=== PATIENT | female | born 1995 | race Two or more races ===

== ENCOUNTER 2019-10-24 16:06 | Inpatient (IN) | payer MEDICAID, OTHER ==
[~2019-10-24] VITALS: Ht 165.1 cm; Wt 108.7 kg
[2019-10-24] MEDS ORDERED: ASPirin 81 mg TAB PO ONE (17:15)
[2019-10-24 18:04] LABS: Urine Bacteria NONE SEEN /hpf (None Seen); Urine Blood Negative /uL (Negative); Urine Specific Gravity 1.015 (1.001-1.035); Urine WBC 28 /hpf (0 - 5)
[2019-10-24 18:24] LABS: Amphetamine Screen, Urine NEGATIVE (NEGATIVE); Barbiturate Scree,Urine NEGATIVE (NEGATIVE); Benzodiazephine Screen, Urine NEGATIVE (NEGATIVE); Cannabinoid Screen, Urine NEGATIVE (NEGATIVE); Cocaine Screen, Urine NEGATIVE (NEGATIVE); Opiate Scree,Urine NEGATIVE (NEGATIVE); Phencyclidine Screen, Urine NEGATIVE (NEGATIVE)
[2019-10-24 18:31] LABS: Basophils # (auto) 0 10 ^3/uL (0-0.2); Basophils % (auto) 0.3 % (0.0-2.0); Eosinophils # (auto) 0.1 10 ^3/uL (0-0.8); Eosinophils % (auto) 1.2 % (0.0-7.0); Hematocrit 41.3 % (36.0-46.0); Hemoglobin 14.1 g/dL (12.2-16.2); Lymphocytes # (auto) 2.3 10 ^3/uL (0.4-5.4); Mean Corpuscular Hemoglobin 28.4 pg (28.0-32.0); Mean Corpuscular Hgb Conc. 34.2 g/dL (32.0-36.0); Monocytes # (auto) 0.5 10 ^3/uL (0-1.3); Monocytes % (auto) 5.8 % (0.0-12.0); Neutrophils # (auto) 5.9 10 ^3/uL (1.6-8.6); Neutrophils % (auto) 66.7 % (37.0-80.0); Nucleated Red Blood Cells % 0.1 %; Platelet Count (auto) 269 10^3/uL (140-450); Red Blood Cells 4.98 10^6/uL (4.0-5.20); White Blood Cell 8.9 10^3/uL (4.4-10.8)
[2019-10-24 18:47] LABS: Alanine Aminotransferase 76 U/L (13-56); Albumin 3.4 g/dL (3.4-5.0); Anion Gap 3 (5-15); Aspartate Aminotransferase 46 U/L (15-37); Blood Urea Nitrogen 18 mg/dL (7-18); Calcium 8.1 mg/dL (8.5-10.1); Carbon Dioxide 28 mmol/L (21-32); Chloride 109 mmol/L (98-107); GFR African American 89 mL/min; GFR Non-African American 74 mL/min; Glucose 94 mg/dL (74-106); Potassium 3.5 mmol/L (3.5-5.1); Sodium 140 mmol/L (136-145)
[2019-10-24 18:52] LABS: Alkaline Phosphatase 54 U/L (45-117); Bilirubin, Total 0.8 mg/dL (0.2-1.0); Total Protein 7.5 g/dL (6.4-8.2)
[2019-10-24] MEDS ORDERED: dilTIAZem 25 MG/5 ML VIAL IV ONE (19:00)
[2019-10-24] MEDS ORDERED: cefTRIAXone 1GM/50ML D5W 50 ML IV ONE (19:00)
[2019-10-24] MEDS ORDERED: ACETAMINOPHEN 500 MG TAB PO PRN (19:15)
[2019-10-24] MEDS ORDERED: LACTULOSE 20Gm/30ML SOLN PO PRN (19:15)
[2019-10-24] MEDS ORDERED: METOPROLOL TARTRATE 25 MG TAB PO SCH (22:00)
--- NOTE | 2019-10-24 22:00 | NUR ---
Telemetry admit from ER Dilma POLANCO admitted to Telemetry unit after SBAR received. Patient oriented to Odilia Durant RN primary RN, unit, room, bed, and unit policies regarding patient care and visiting hours. Patient now on continuous telemetry monitoring, tele box # [id number] and telemetry reading on arrival to unit is Afib. Patient weighed by bedscale and encouraged to call if they need something. Instructed on POC. All questions and concerns addressed, patient verbalized understanding, will continue to monitor Note: []
[2019-10-24] MEDS: SODIUM CHLORIDE 0.9% 1,000 ML IV SCH (23:19)
[2019-10-24] MEDS: FAMOTIDINE 20 MG TAB PO SCH (23:19)
[2019-10-24] MEDS: ENOXAPARIN SOD 100 MG/1 ML SYRINGE SC SCH (23:20)
[2019-10-24 23:30] VITALS: BP 122/71
[2019-10-24 23:47] VITALS: BP 122/77
[2019-10-25] VITALS (7 sets, daily range): BP systolic 105–135; BP diastolic 67–79
[2019-10-25] MEDS: METOPROLOL TARTRATE 25 MG TAB PO SCH ×3 (01:06→22:16)
[2019-10-25] MEDS: NITROGLYCERIN 0.4 MG SL TAB SL PRN ×2 (02:30→02:35)
--- NOTE | 2019-10-25 02:30 | NUR ---
0230 - Patient complained of SOB and chest pain 01/31. Chest pain protocol initiated. 1st NTG tab SL given. EKG done. V/S taken BP 130/90, HR 103, O2 Sat 100% at 2 Lpm/NC, will continue to monitor 0235 - patient still complained of chest pain 12/01, 2nd NTG given, will continue to monitor 0245 - Patient stated chest pain partially relieved at 06/03. Maintained on O2. Instructed to call as needed, will continue to monitor
--- NOTE | 2019-10-25 04:05 | NUR ---
Paged hospitalist, awaiting call back
--- NOTE | 2019-10-25 04:30 | NUR ---
Received call from [employer] that patient had 5 beats of Vtach. Checked on patient, per patient no chest pain at this time, V/S taken, BP 112/79, HR 123, 96% on 2 Lpm/NC. Hospitalist was paged earlier, still waiting for call back, will continue to monitor
[2019-10-25] MEDS: SODIUM CHLORIDE 0.9% 1,000 ML IV SCH ×2 (05:07→15:07)
--- NOTE | 2019-10-25 05:17 | NUR ---
Hospitalist Luis called back, no new order received at this time, will continue to monitor
[2019-10-25] MEDS ORDERED: IBUP800T24 PO (05:46)
--- NOTE | 2019-10-25 10:20 | NUR ---
Patient c/o Chest Pain Patient c/o severe cp, per DIRECT SERVICE WORKER patient is crying. VS: BP 99/46, HR 60, RR20, Spo2 96%. Elevated feet up. O2 at 2L. reassessment 10 minutes BP, 103/56. EKG completed. Pain medication given per MD orders. Will continue to monitor.
[2019-10-25] MEDS: MORPHINE SULF INJ 2 MG/ML SYRINGE 1ML IV PRN (10:30)
--- NOTE | 2019-10-25 10:38 | NUR ---
EKG EKG read by dr. Basurto, no new orders.
[2019-10-25] MEDS: ASPirin 81 mg TAB PO SCH (11:09)
[2019-10-25] MEDS: cefTRIAXone 1GM/50ML D5W 50 ML IV SCH (11:09)
[2019-10-25] MEDS: FAMOTIDINE 20 MG TAB PO SCH ×2 (11:10→22:15)
[2019-10-25] MEDS ORDERED: DIGOXIN (250MCG/ML) 2 ML AMPULE IV ONE (11:45)
[2019-10-25] MEDS: ENOXAPARIN SOD 100 MG/1 ML SYRINGE SC SCH ×2 (12:39→22:15)
[2019-10-25] MEDS: FUROSEMIDE 20 MG/2 ML VIAL IV SCH ×2 (12:40→18:00)
--- NOTE | 2019-10-25 17:27 | NUR ---
Rounds Patient is comfortably resting in bed. No s/s distress /sob noted/stated. No c/o pain. Will continue to monitor.
--- NOTE | 2019-10-25 19:20 | NUR ---
CLOSING NOTE Patient comfortably resting, no s/s of distress, no c/o pain. Call light at bedside and bed at lowest locked position. Care endorsed to Liliana RODRIGUEZ.
--- NOTE | 2019-10-25 19:30 | NUR ---
Opening Shift Note Assumed care of patient, awake and alert. No S/S of distress/SOB or pain. Instructed on POC and to call for assist PRN, will continue to monitor for changes Q1hr and PRN.
[2019-10-26] VITALS (7 sets, daily range): BP systolic 100–120; BP diastolic 64–77
[2019-10-26] MEDS: SODIUM CHLORIDE 0.9% 1,000 ML IV SCH ×2 (01:07→09:53)
[2019-10-26 05:55] LABS: Basophils # (auto) 0 10 ^3/uL (0-0.2); Basophils % (auto) 0.5 % (0.0-2.0); Eosinophils # (auto) 0.1 10 ^3/uL (0-0.8); Eosinophils % (auto) 1.8 % (0.0-7.0); Hematocrit 41.3 % (36.0-46.0); Hemoglobin 13.9 g/dL (12.2-16.2); Lymphocytes # (auto) 2.1 10 ^3/uL (0.4-5.4); Lymphocytes % (auto) 29.4 % (10.0-50.0); Mean Corpuscular Hgb Conc. 33.7 g/dL (32.0-36.0); Monocytes # (auto) 0.5 10 ^3/uL (0-1.3); Monocytes % (auto) 6.9 % (0.0-12.0); Neutrophils # (auto) 4.3 10 ^3/uL (1.6-8.6); Neutrophils % (auto) 61.4 % (37.0-80.0); Nucleated Red Blood Cells % 0.2 %; Platelet Count (auto) 262 10^3/uL (140-450); Red Blood Cells 4.97 10^6/uL (4.0-5.20); Red Cell Distribution Width 12.9 % (11.8-14.3)
[2019-10-26 06:14] LABS: Potassium 3.4 mmol/L (3.5-5.1)
[2019-10-26 06:23] LABS: BUN/Creatinine Ratio 16.8; Calcium 8.3 mg/dL (8.5-10.1)
[2019-10-26] MEDS: FUROSEMIDE 20 MG/2 ML VIAL IV SCH ×2 (06:23→18:14)
--- NOTE | 2019-10-26 09:45 | NUR ---
DR. MARCIAL AT BEDSIDE TO DISCUSS PLAN OF CARE WITH PATIENT .
[2019-10-26] MEDS: cefTRIAXone 1GM/50ML D5W 50 ML IV SCH (09:51)
[2019-10-26] MEDS: METOPROLOL TARTRATE 25 MG TAB PO SCH ×2 (09:52→22:00)
[2019-10-26] MEDS: FAMOTIDINE 20 MG TAB PO SCH ×2 (09:52→23:11)
[2019-10-26] MEDS: ASPirin 81 mg TAB PO SCH (09:52)
[2019-10-26] MEDS: ENOXAPARIN SOD 100 MG/1 ML SYRINGE SC SCH ×2 (09:52→23:12)
[2019-10-26] MEDS: traMADol HCL 50 MG TAB PO PRN ×2 (09:53→23:11)
[2019-10-26] MEDS ORDERED: POTASSIUM EFFERVESENT TAB 25 MEQ PO ONE (10:00)
--- NOTE | 2019-10-26 10:00 | NUR ---
IV INSERTION INSERTED 20 G TO THE RIGHT AC, WITH ONE ATTEMPT, PATIENT TOLERATED WELL. REMOVED 20 G TO THE LEFT AC.
[2019-10-27 05:00] VITALS: BP 121/69
[2019-10-27] MEDS: FUROSEMIDE 20 MG/2 ML VIAL IV SCH ×2 (06:23→18:00)
[2019-10-27 06:31] LABS: Basophils # (auto) 0 10 ^3/uL (0-0.2); Basophils % (auto) 0.4 % (0.0-2.0); Eosinophils # (auto) 0.1 10 ^3/uL (0-0.8); Eosinophils % (auto) 2.4 % (0.0-7.0); Hemoglobin 14.7 g/dL (12.2-16.2); Lymphocytes # (auto) 2.4 10 ^3/uL (0.4-5.4); Lymphocytes % (auto) 42.6 % (10.0-50.0); Mean Corpuscular Hemoglobin 27.8 pg (28.0-32.0); Mean Corpuscular Hgb Conc. 33.5 g/dL (32.0-36.0); Mean Corpuscular Volume 82.8 fL (80.0-100.0); Monocytes # (auto) 0.5 10 ^3/uL (0-1.3); Monocytes % (auto) 8.2 % (0.0-12.0); Neutrophils # (auto) 2.6 10 ^3/uL (1.6-8.6); Neutrophils % (auto) 46.4 % (37.0-80.0); Nucleated Red Blood Cells % 0.4 %; Platelet Count (auto) 271 10^3/uL (140-450); Red Blood Cells 5.31 10^6/uL (4.0-5.20); Red Cell Distribution Width 13.4 % (11.8-14.3); White Blood Cell 5.6 10^3/uL (4.4-10.8)
[2019-10-27 06:50] LABS: Calcium 8.4 mg/dL (8.5-10.1); Potassium 3.5 mmol/L (3.5-5.1)
[2019-10-27 06:52] LABS: BUN/Creatinine Ratio 23.3
--- NOTE | 2019-10-27 07:01 | NUR ---
SIDE EFFECTS OF LASIX DISCUSSED WITH PATIENT;PT RESTING COMFORTABLY;DENIES PAIN OR DISCOMFORT;TWO SIDERAILS UP WITH CALL LIGHT IN REACH.
[2019-10-27 09:00] VITALS: BP 117/57
[2019-10-27] MEDS: cefTRIAXone 1GM/50ML D5W 50 ML IV SCH (09:26)
[2019-10-27] MEDS: METOPROLOL TARTRATE 25 MG TAB PO SCH ×2 (09:27→22:00)
[2019-10-27] MEDS: ASPirin 81 mg TAB PO SCH (09:27)
[2019-10-27] MEDS: SPIRONOLACTONE 25 MG TAB PO SCH (09:27)
[2019-10-27] MEDS: LISINOPRIL 5 MG TAB PO SCH (09:28)
[2019-10-27] MEDS: FAMOTIDINE 20 MG TAB PO SCH ×2 (09:28→23:14)
[2019-10-27] MEDS: ENOXAPARIN SOD 100 MG/1 ML SYRINGE SC SCH (09:29)
[2019-10-27] MEDS: MORPHINE SULF INJ 2 MG/ML SYRINGE 1ML IV PRN (09:29)
--- NOTE | 2019-10-27 12:04 | NUR ---
Spoke with pharmacist regarding patients urine culture she stated to keep patient on Rocephin until sensitivity comes back tomorrow. Notified Dr. Basurto. Dr. Kaufman at patients bedside to discuss plan of care
[2019-10-27] MEDS: APIXABAN 5 MG TAB PO SCH ×2 (12:52→23:14)
[2019-10-27 14:00] VITALS: BP 100/60
[2019-10-27 17:15] VITALS: BP 96/70
[2019-10-28 05:00] VITALS: BP 106/68
[2019-10-28] MEDS: FUROSEMIDE 20 MG/2 ML VIAL IV SCH ×2 (06:06→17:27)
[2019-10-28 06:58] LABS: Basophils # (auto) 0 10 ^3/uL (0-0.2); Basophils % (auto) 0.3 % (0.0-2.0); Eosinophils # (auto) 0.1 10 ^3/uL (0-0.8); Eosinophils % (auto) 2.4 % (0.0-7.0); Hemoglobin 15.5 g/dL (12.2-16.2); Lymphocytes % (auto) 35.2 % (10.0-50.0); Mean Corpuscular Hemoglobin 27.8 pg (28.0-32.0); Mean Corpuscular Hgb Conc. 33.7 g/dL (32.0-36.0); Mean Corpuscular Volume 82.6 fL (80.0-100.0); Monocytes # (auto) 0.4 10 ^3/uL (0-1.3); Monocytes % (auto) 7.9 % (0.0-12.0); Neutrophils # (auto) 3.1 10 ^3/uL (1.6-8.6); Neutrophils % (auto) 54.2 % (37.0-80.0); Nucleated Red Blood Cells % 0.2 %; Platelet Count (auto) 275 10^3/uL (140-450); Red Blood Cells 5.57 10^6/uL (4.0-5.20); Red Cell Distribution Width 13.2 % (11.8-14.3); White Blood Cell 5.6 10^3/uL (4.4-10.8)
[2019-10-28 07:10] LABS: BUN/Creatinine Ratio 25.3; Calcium 8.8 mg/dL (8.5-10.1); Magnesium 2.3 mg/dL (1.6-2.6); Potassium 3.7 mmol/L (3.5-5.1)
--- NOTE | 2019-10-28 07:30 | NUR ---
Opening Shift Note Assumed care of patient, awake and alert. No S/S of distress/SOB or pain. Bed in lowest and locked position with side rails upx2 and call light in reach. Instructed on POC and to call for assist PRN, will continue to monitor for changes Q1hr and PRN.
[2019-10-28 09:00] VITALS: BP 126/69
[2019-10-28] MEDS: cefTRIAXone 1GM/50ML D5W 50 ML IV SCH (09:07)
[2019-10-28] MEDS: ASPirin 81 mg TAB PO SCH (09:08)
[2019-10-28] MEDS: SPIRONOLACTONE 25 MG TAB PO SCH (09:08)
[2019-10-28] MEDS: APIXABAN 5 MG TAB PO SCH ×2 (09:09→21:42)
[2019-10-28] MEDS: METOPROLOL TARTRATE 25 MG TAB PO SCH ×2 (09:09→21:43)
[2019-10-28] MEDS: FAMOTIDINE 20 MG TAB PO SCH ×2 (09:10→21:42)
[2019-10-28] MEDS: LISINOPRIL 5 MG TAB PO SCH (09:11)
[2019-10-28 13:00] VITALS: BP 111/56
[2019-10-28 13:55] LABS: Hepatitis A Ab IgM Negative; Hepatitis B Core IgM Negative
[2019-10-28 13:56] LABS: Hepatitis B Surface Antigen Negative (Negative); Hepatitis C Antibody Negative (Negative)
--- NOTE | 2019-10-28 14:39 | NUR ---
Est energy needs 3722-7538 kcal (14-18 kcal/kg BW 109kg) Est protein needs 57-74g (1-1.3g/kg IBW 57kg) Will reassess prn. Addendum: 10/28/19 at [address] Amended: Links added.
--- NOTE | 2019-10-28 15:16 | NUR ---
1500 10/28/19 - Faxed to [facility] Rajendra Restrepo at [phone] face sheet, H/P, consults, ECHO and progress notes.
--- NOTE | 2019-10-28 15:57 | NUR ---
SPOKE TO LINA WITH THE [employer]. ACCORDING TO LINA THERE IS PAPERWORK THAT NEEDS TO BE SIGNED. PER LINA, SHE WILL FAX THE PAPERWORK OVER. RN PROVIDED LINA WITH THE FAX NUMBER TO THE [facility]. RN SPOKE TO DR. SOLORIO AND NOTIFIED DR. SOLORIO ON THE PAPERWORK THAT NEEDS A DOCTOR SIGNATURE. PER DR. SOLORIO, HE WILL SIGN THE PAPERWORK TOMORROW 10/29/2019. RN UPDATED LINA ON THE CONVERSATION WITH DR. SOLORIO. LINA VERBALIZED UNDERSTANDING. STILL AWAITING FAX. Addendum: 10/28/19 at 1605 by JACKLYN HUNTER RN RN PHONE NUMBER FOR LINA WITH [employer] IS [phone].
[2019-10-28 16:57] VITALS: BP 89/49
--- NOTE | 2019-10-28 19:00 | NUR ---
Opening Shift Note: Assumed care of patient, awake and alert. No S/S of distress/SOB or pain. Bed in lowest locked position, side rails up x 2, call light within reach. Patient instructed on POC and to call for assist PRN, will continue to monitor for changes Q1hr and PRN.
[2019-10-28 22:00] VITALS: BP 143/88
--- NOTE | 2019-10-29 02:46 | NUR ---
Closing note: Patient asleep in bed. No S/S of distress at this time. Care endorsed.
--- NOTE | 2019-10-29 02:50 | NUR ---
ASSUMED PATIENT CARE. REPORT RECEIVED. PATIENT RESTING IN BED, NO DISTRESS NOTED. WILL CONTINUE TO MONITOR.
[2019-10-29 04:57] VITALS: BP 127/81
[2019-10-29] MEDS: FUROSEMIDE 20 MG/2 ML VIAL IV SCH ×2 (05:59→18:00)
[2019-10-29 06:44] LABS: Basophils # (auto) 0 10 ^3/uL (0-0.2); Basophils % (auto) 0.7 % (0.0-2.0); Eosinophils # (auto) 0.1 10 ^3/uL (0-0.8); Eosinophils % (auto) 2.2 % (0.0-7.0); Hematocrit 49.8 % (36.0-46.0); Hemoglobin 16.5 g/dL (12.2-16.2); Lymphocytes # (auto) 2.1 10 ^3/uL (0.4-5.4); Lymphocytes % (auto) 32.9 % (10.0-50.0); Mean Corpuscular Hemoglobin 27.6 pg (28.0-32.0); Mean Corpuscular Hgb Conc. 33.3 g/dL (32.0-36.0); Mean Corpuscular Volume 83.1 fL (80.0-100.0); Monocytes # (auto) 0.5 10 ^3/uL (0-1.3); Neutrophils # (auto) 3.5 10 ^3/uL (1.6-8.6); Neutrophils % (auto) 56.2 % (37.0-80.0); Platelet Count (auto) 329 10^3/uL (140-450); Red Blood Cells 5.99 10^6/uL (4.0-5.20); Red Cell Distribution Width 13.3 % (11.8-14.3); White Blood Cell 6.3 10^3/uL (4.4-10.8)
[2019-10-29 07:27] LABS: BUN/Creatinine Ratio 22.1; Calcium 9.7 mg/dL (8.5-10.1)
--- NOTE | 2019-10-29 08:15 | NUR ---
OPENING SHIFT NOTE: PATIENT AWAKE SITTING IN CHAIR AT BEDSIDE, A/OX4, RESPIRATIONS EVEN AND UNLABORED. PATIENT DENIES ANY PAIN AT THIS TIME. THIS RN PERFORMED FULL LINEN CHANGE AND GAVE SUPPLIES FOR BATHING. UPDATED ON PLAN OF CARE, PATIENT VERY PLEASANT ESTABLISHED RAPPORT, MORE EDUCATION GIVEN ON [facility] LIFE VEST, PATIENT VERBALIZED UNDERSTANDING, CONCERNS ADDRESSED. CALL LIGHT WITHIN REACH, WILL CONTINUE TO MONITOR.
[2019-10-29 08:57] VITALS: BP 125/57
--- NOTE | 2019-10-29 10:50 | NUR ---
BAD CLOTH CHECKER ELOISA AT BEDSIDE.
[2019-10-29] MEDS: ASPirin 81 mg TAB PO SCH (10:54)
[2019-10-29] MEDS: cefTRIAXone 1GM/50ML D5W 50 ML IV SCH (10:54)
[2019-10-29] MEDS: APIXABAN 5 MG TAB PO SCH ×2 (10:54→22:02)
[2019-10-29] MEDS: SPIRONOLACTONE 25 MG TAB PO SCH (10:55)
[2019-10-29] MEDS: FAMOTIDINE 20 MG TAB PO SCH ×2 (10:55→22:02)
[2019-10-29] MEDS: LISINOPRIL 5 MG TAB PO SCH (10:55)
[2019-10-29] MEDS: METOPROLOL TARTRATE 25 MG TAB PO SCH ×2 (10:56→22:02)
--- NOTE | 2019-10-29 11:13 | NUR ---
CALL MADE TO LINA REGARDING UNRECEIVED PAPERWORK. PENDING MD SIGNATURE. VOICEMAIL LEFT REGARDING THIS ISSUE.
--- NOTE | 2019-10-29 12:58 | NUR ---
FAX RECIEVED FROM LINA AT [facility]. THIS RN TO RE-SEND WITH SIGNATURES. FAX NUMBER TO LINA DIRECT [phone]
[2019-10-29 13:00] VITALS: BP 118/62
--- NOTE | 2019-10-29 14:55 | NUR ---
[facility] ASSISTANCE PROGRAM PAPER GIVEN TO PATIENT, EDUCATION GIVEN, AND THIS RN TO SEND BACK TO [facility] ONCE COMPLETE.
--- NOTE | 2019-10-29 16:29 | NUR ---
assessment Patient is a 23 year old female who is alert and oriented. Patients cognitive abilities are intact. Prior to admission patient lived home with family and functioned independently. Patient informed me she is able to care for her own ADLs. Per patient she will return home to her prior living arrangements post discharge and family will transport her home. Patient has no insurance. Patient has been assessed by Florentino Moss of [facility]. Patient is over income. Patient may qualify for Medi-chris since she will be disabled. Florentino has gotten a letter sign by the doctor and is now working on Medi-chris. Patient has a consult for [employer]. A technical sales representatives will contact patient regarding program for no insurance patients. I have provided patient with resources for [facility], Dr. Gomez, and [facility] urgent care for follow up visits. I have provided patient with a prescription card from community assistance program.I informed patient she has a right to speak to a addiction social worker regarding all care. I informed patient she has a right to participate in any and all discharge planning. Patient does not have a POA and advanced directive. I have offered patient information on POA and advanced directives. I informed the patient the advantages and benefits of having an Advanced Directive. Patient verbalized understanding and agreed to discharge plan. Addendum: 10/29/19 at 1637 by Olimpia SARABIA Amended: Links added.
[2019-10-29 16:57] VITALS: BP 107/53
--- NOTE | 2019-10-29 18:35 | NUR ---
PAPERWORK FAXED TO [facility]: ECHO REPORT, ASSISTANCE PROGRAM, AND VEST ORDER SENT TO [facility] REP LINA. ONCE PENDING ACCEPTANCE NUMBER IS GIVEN OR [facility] PENDING AUTHORIZATION NUMBER LINA IS REQUESTING # FOR FURTHER ZOL APPROVALS.
--- NOTE | 2019-10-29 18:51 | NUR ---
CARE ENDORSED TO LISA RODRIGUEZ.
--- NOTE | 2019-10-29 19:40 | NUR ---
RECEIVED PATIENT FROM DAY SHIFT RN. PATIENT RESTING IN BED. NO S/S OF DISTRESS NOTED. DENIED PAIN FOR NOW. POC INSTRUCTED AND ENCOURAGED PATIENT TO CALL FOR RESOURCING CONSULTANT IF NEEDED. BED IN LOWEST POSITION WITH SIDE RAILS UP X 2. CALL MOSQUERA WITHIN REACH. CONTINUE TO MONITOR FOR CHANGES Q1H AND PRN.
[2019-10-29 22:00] VITALS: BP 105/70
--- NOTE | 2019-10-29 23:31 | NUR ---
PATIENT RESTING IN BED AND WATCHING MOVIE, NO S/S OF DISTRESS NOTED. DENIED PAIN AND ANY CHEST DISCOMFORT. CONTINUE TO MONITOR.
--- NOTE | 2019-10-30 03:27 | NUR ---
PATIENT SLEEPING. NO S/S OF DISTRESS NOTED. CONTINUE CARE.
[2019-10-30 04:57] VITALS: BP 114/64
[2019-10-30] MEDS: FUROSEMIDE 20 MG/2 ML VIAL IV SCH (06:13)
--- NOTE | 2019-10-30 07:20 | NUR ---
OPENING SHIFT NOTE ASSUMED CARE OF PATIENT FROM MOTORBOAT MECHANIC HELPER RN CHRISTINE. PATIENT IS AWAKE, ALERT AND ORIENTED X4. PATIENT HAS NO S/S OF DISTRESS/SOB OR PAIN. INSTRUCTED PATIENT ON POC, PATIENT VERBALIZED UNDERSTANDING. BED IS IN LOWEST POSITION WITH SIDE RAILS RAISED X2, BED WHEELS LOCKED, AND CALL LIGHT IS WITHIN REACH.
[2019-10-30 07:37] VITALS: BP 109/61
[2019-10-30 08:20] LABS: Basophils # (auto) 0 10 ^3/uL (0-0.2); Eosinophils # (auto) 0.2 10 ^3/uL (0-0.8); Hemoglobin 16.7 g/dL (12.2-16.2); Red Cell Distribution Width 13.1 % (11.8-14.3)
[2019-10-30 08:21] LABS: Basophils % (auto) 0.7 % (0.0-2.0); Eosinophils % (auto) 2.4 % (0.0-7.0); Hematocrit 49.6 % (36.0-46.0); Lymphocytes # (auto) 2.5 10 ^3/uL (0.4-5.4); Lymphocytes % (auto) 37.5 % (10.0-50.0); Mean Corpuscular Hemoglobin 27.8 pg (28.0-32.0); Mean Corpuscular Hgb Conc. 33.7 g/dL (32.0-36.0); Mean Corpuscular Volume 82.4 fL (80.0-100.0); Monocytes # (auto) 0.6 10 ^3/uL (0-1.3); Monocytes % (auto) 9.2 % (0.0-12.0); Neutrophils # (auto) 3.4 10 ^3/uL (1.6-8.6); Neutrophils % (auto) 50.2 % (37.0-80.0); Nucleated Red Blood Cells % 0.3 %; Platelet Count (auto) 332 10^3/uL (140-450); Red Blood Cells 6.02 10^6/uL (4.0-5.20); White Blood Cell 6.7 10^3/uL (4.4-10.8)
--- NOTE | 2019-10-30 08:30 | NUR ---
PER PATIENT SHE IS ON THE PHONE WITH [facility] VEST QUALITY CONTROL TESTER
[2019-10-30 08:37] LABS: Calcium 9.3 mg/dL (8.5-10.1); Potassium 3.6 mmol/L (3.5-5.1)
[2019-10-30 08:40] LABS: BUN/Creatinine Ratio 27.9
--- NOTE | 2019-10-30 08:44 | NUR ---
SPOKE WITH FLAVOR MAKER BABATUNDE. PER BABATUNDE, ZOLL VEST WILL SPEAK WITH PATIENT REGARDING ZOLL VEST.
[2019-10-30 08:57] VITALS: BP 109/69
[2019-10-30] MEDS: ASPirin 81 mg TAB PO SCH (09:15)
[2019-10-30] MEDS: METOPROLOL TARTRATE 25 MG TAB PO SCH ×2 (09:15→21:43)
[2019-10-30] MEDS: FAMOTIDINE 20 MG TAB PO SCH ×2 (09:15→21:41)
[2019-10-30] MEDS: APIXABAN 5 MG TAB PO SCH ×2 (09:16→21:42)
[2019-10-30] MEDS: SPIRONOLACTONE 25 MG TAB PO SCH (09:17)
[2019-10-30] MEDS: cefTRIAXone 1GM/50ML D5W 50 ML IV SCH (09:18)
[2019-10-30] MEDS: LISINOPRIL 5 MG TAB PO SCH (09:18)
[2019-10-30 13:00] VITALS: BP 101/66
--- NOTE | 2019-10-30 15:05 | NUR ---
SPOKE WITH NISSA FROM [facility] AND SHE WILL BE HERE AT 1800 TO FIT PATIENT FOR VEST
--- NOTE | 2019-10-30 15:30 | NUR ---
SPOKE WITH DR. LLANOS. INFORMED MD [facility] WILL BE HERE AT 1800 TO FIT PATIENT FOR VEST. PER MD, SHE WILL DISCHARGE PATIENT IN THE MORNING.
[2019-10-30 16:57] VITALS: BP 96/66
--- NOTE | 2019-10-30 18:45 | NUR ---
ZOLL VEST STEELER AT BEDSIDE. FITTING PATIENT FOR ZOLL VEST
--- NOTE | 2019-10-30 19:14 | NUR ---
CLOSING SHIFT NOTE ENDORSED CARE TO SUSTAINABILITY PROJECT COORDINATOR RN ESHA. PATIENT HAS NO S/S OF DISTRESS/SOB OR PAIN AT THIS TIME.
--- NOTE | 2019-10-30 19:30 | NUR ---
Opening Shift Note Assumed care of patient, awake and alert using the restroom. No S/S of distress/SOB or pain. patient has no telebox monitor applied. Informed patient to call when done to apply telemonitor. patient verbalized understanding.
--- NOTE | 2019-10-30 19:50 | NUR ---
Assumed care of patient, awake and alert. telemonitor reapplied 110 bpm denies sob distress or pain. patient has life vest on. Instructed on POC and to call for assist PRN, will continue to monitor for changes Q1hr and PRN. bed in low position and call light within reach
[2019-10-30 22:00] VITALS: BP 98/56
[2019-10-31 05:35] VITALS: BP 123/58
[2019-10-31 07:10] LABS: Basophils # (auto) 0 10 ^3/uL (0-0.2); Basophils % (auto) 0.5 % (0.0-2.0); Eosinophils # (auto) 0.2 10 ^3/uL (0-0.8); Eosinophils % (auto) 2.1 % (0.0-7.0); Hematocrit 46.7 % (36.0-46.0); Hemoglobin 15.4 g/dL (12.2-16.2); Lymphocytes # (auto) 2.9 10 ^3/uL (0.4-5.4); Lymphocytes % (auto) 40.1 % (10.0-50.0); Mean Corpuscular Hemoglobin 27.5 pg (28.0-32.0); Mean Corpuscular Volume 83.2 fL (80.0-100.0); Monocytes # (auto) 0.8 10 ^3/uL (0-1.3); Monocytes % (auto) 11.1 % (0.0-12.0); Neutrophils # (auto) 3.3 10 ^3/uL (1.6-8.6); Neutrophils % (auto) 46.2 % (37.0-80.0); Nucleated Red Blood Cells % 0.1 %; Platelet Count (auto) 316 10^3/uL (140-450); Red Blood Cells 5.61 10^6/uL (4.0-5.20); White Blood Cell 7.2 10^3/uL (4.4-10.8)
--- NOTE | 2019-10-31 07:15 | NUR ---
OPENING NOTE Assumed care of patient at 0700. Patient is exhibiting no signs of respiratory distress at this time. Patient is showing no signs of pain at this time. Updated patient on POC. Bed locked in lowest position, side rails up x 2, HOB elevated at least 30 degrees and call light is within reach. Will continue to monitor.
--- NOTE | 2019-10-31 07:16 | NUR ---
report given to dayshift rn patient denies sob distress or pain
[2019-10-31 07:33] LABS: Calcium 8.9 mg/dL (8.5-10.1)
[2019-10-31 07:37] LABS: BUN/Creatinine Ratio 27.2
[2019-10-31] MEDS ORDERED: ATOR40TA52 PO (08:24)
[2019-10-31] MEDS ORDERED: MET25T PO (08:24)
[2019-10-31] MEDS ORDERED: APIX5TAB PO (08:24)
[2019-10-31] MEDS ORDERED: LISI2.5T47 PO (08:24)
[2019-10-31] MEDS ORDERED: ASPI81CH43 PO (08:26)
[2019-10-31] MEDS ORDERED: FURO20TA3 PO (08:26)
[2019-10-31 08:44] VITALS: BP 134/77
[2019-10-31] MEDS: APIXABAN 5 MG TAB PO SCH (10:20)
[2019-10-31] MEDS: FAMOTIDINE 20 MG TAB PO SCH (10:20)
[2019-10-31] MEDS: ASPirin 81 mg TAB PO SCH (10:20)
[2019-10-31] MEDS: METOPROLOL TARTRATE 25 MG TAB PO SCH (10:21)
[2019-10-31 10:26] VITALS: BP 134/79
--- NOTE | 2019-10-31 11:53 | NUR ---
Discharge instructions given as ordered. Encourage to follow up with PMD as instructed. All questions and concerns addressed. Patient verbalized understanding. Medication reconciliation form completed and copy given to patient. IV removed by MICHAEL Garcia with catheter intact, pressure dressing applied. Telemetry unit returned to ICU. Patient ambulated to vehicle all personal belongings, accompanied by staff. No distress noted at time of departure.
== END 2019-10-31 11:53 | disposition home or self-care (01) | DRG 291 ==
LOC: EDSEX 16:06 → ER 16:06 → TELE 16:07 → TELE-WESTW 22:28
PROVIDERS: ADMIT Internal Medicine; ATTEND Internal Medicine Nephrology
DX: I50.43 Acute on chronic combined systolic (congestive) and diastolic (congestive) heart failure (principal); N17.0 Acute kidney failure with tubular necrosis; E87.1 Hypo-osmolality and hyponatremia; D68.69 Other thrombophilia; I48.19 Other persistent atrial fibrillation; I48.92 Unspecified atrial flutter; N39.0 Urinary tract infection, site not specified; E66.9 Obesity, unspecified; M54.9 Dorsalgia, unspecified; R07.89 Other chest pain; E87.6 Hypokalemia; F12.90 Cannabis use, unspecified, uncomplicated; G89.29 Other chronic pain; I07.1 Rheumatic tricuspid insufficiency; Z82.0 Family history of epilepsy and other diseases of the nervous system; Z82.3 Family history of stroke; Z82.49 Family history of ischemic heart disease and other diseases of the circulatory system; Z83.3 Family history of diabetes mellitus; Z68.39 Body mass index [BMI] 39.0-39.9, adult
CPT/HCPCS: 36415; 71046; 71275; 76705; 76775; 80048; 80053; 80074; 80307; 81001; 81025; 82550; 83735; 83880; 84443; 84484; 85025; 85379; 87086; 93005; 93306; 93970; 96374; G0378; J0696

== ENCOUNTER 2020-02-09 20:49 | Inpatient (IN) | payer MEDICAID ==
[~2020-02-09] VITALS: Ht 165.1 cm; Wt 114.7 kg
[~2020-02-09 20:49] MED LIST: APIX5TAB PO; ASPI81CH43 PO; MET25T PO
[2020-02-09] MEDS ORDERED: dilTIAZem HCL 60 MG TAB PO ONE (21:15)
[2020-02-09] MEDS ORDERED: dilTIAZem 25 MG/5 ML VIAL IV ONE (21:15)
[2020-02-09 21:24] LABS: Basophils # (auto) 0 10 ^3/uL (0-0.2); Basophils % (auto) 0.6 % (0.0-2.0); Eosinophils # (auto) 0.1 10 ^3/uL (0-0.8); Eosinophils % (auto) 1.7 % (0.0-7.0); Hematocrit 40.7 % (36.0-46.0); Hemoglobin 13.5 g/dL (12.2-16.2); Lymphocytes # (auto) 2.2 10 ^3/uL (0.4-5.4); Lymphocytes % (auto) 28.6 % (10.0-50.0); Mean Corpuscular Hemoglobin 27.6 pg (28.0-32.0); Mean Corpuscular Hgb Conc. 33.1 g/dL (32.0-36.0); Mean Corpuscular Volume 83.3 fL (80.0-100.0); Monocytes # (auto) 0.5 10 ^3/uL (0-1.3); Monocytes % (auto) 6.6 % (0.0-12.0); Neutrophils # (auto) 4.8 10 ^3/uL (1.6-8.6); Neutrophils % (auto) 62.5 % (37.0-80.0); Nucleated Red Blood Cells % 0.1 %; Platelet Count (auto) 341 10^3/uL (140-450); Red Blood Cells 4.88 10^6/uL (4.0-5.20); Red Cell Distribution Width 13.8 % (11.8-14.3); White Blood Cell 7.7 10^3/uL (4.4-10.8)
[2020-02-09 21:34] LABS: Albumin 2.8 g/dL (3.4-5.0); Calcium 7.8 mg/dL (8.5-10.1); Potassium 3.6 mmol/L (3.5-5.1)
[2020-02-09 21:36] LABS: INR 1.55 (0.9-1.15); Partial Thromboplastin Time 26.5 sec (23.0-31.2)
[2020-02-09 21:39] LABS: Bilirubin, Total 1.3 mg/dL (0.2-1.0); Total Protein 6.2 g/dL (6.4-8.2)
[2020-02-09] MEDS ORDERED: SODIUM CHLORIDE 0.9% 500 ML IV ONE (22:00)
[2020-02-09 22:18] LABS: Urine Bacteria MOD /hpf (None Seen); Urine Blood 3+ /uL (Negative); Urine Specific Gravity 1.018 (1.001-1.035); Urine WBC 95 /hpf (0 - 5)
[2020-02-09 22:32] LABS: Alcohol, Urine < 3.0 mg/dL (0-10); Amphetamine Screen, Urine NEGATIVE (NEGATIVE); Barbiturate Scree,Urine NEGATIVE (NEGATIVE); Benzodiazephine Screen, Urine NEGATIVE (NEGATIVE); Cannabinoid Screen, Urine NEGATIVE (NEGATIVE); Cocaine Screen, Urine NEGATIVE (NEGATIVE); Opiate Scree,Urine NEGATIVE (NEGATIVE); Phencyclidine Screen, Urine NEGATIVE (NEGATIVE)
[2020-02-09] MEDS ORDERED: cefTRIAXone 1GM/50ML D5W 50 ML IV ONE (23:15)
[2020-02-10] MEDS ORDERED: TEMAZEPAM 15 MG CAP PO PRN (00:30)
[2020-02-10] MEDS ORDERED: ONDANSETRON HCL 4 MG/2 ML VIAL IV PRN (00:30)
[2020-02-10] MEDS ORDERED: NITROGLYCERIN 0.4 MG SL TAB SL PRN (00:30)
[2020-02-10] MEDS ORDERED: ACETAMINOPHEN 325 MG TAB PO PRN (00:30)
[2020-02-10] MEDS ORDERED: FUROSEMIDE 20 MG/2 ML VIAL IV ONE (00:30)
[2020-02-10] MEDS ORDERED: AMIODARONE HCL 150 MG in D5W 5% 100 ML IV ONE (01:00)
[2020-02-10] MEDS ORDERED: AMIODARONE 450mg/250ml AE 250 ML IV SCH ×2 (01:15→07:15)
[2020-02-10] MEDS ORDERED: AMIODARONE HCL (50 MG/ ML) 3 ML VIAL IV ONE (01:42)
[2020-02-10] MEDS ORDERED: PROMETHAZINE HCL 25 MG/ML 1ML IM ONE (03:00)
[2020-02-10] MEDS: cefTRIAXone 1GM/50ML D5W 50 ML IV SCH (09:24)
[2020-02-10] MEDS: FUROSEMIDE 20 MG/2 ML VIAL IV SCH ×2 (10:00→12:30)
[2020-02-10] MEDS: METOPROLOL TARTRATE 25 MG TAB PO SCH ×2 (10:00→18:16)
[2020-02-10] MEDS ORDERED: ASPirin 81 mg TAB PO SCH (10:00)
[2020-02-10] MEDS: FAMOTIDINE 20 MG TAB PO SCH ×2 (10:08→20:07)
[2020-02-10] MEDS: APIXABAN 5 MG TAB PO SCH ×2 (10:12→20:07)
[2020-02-10 11:10] VITALS: BP 105/69
--- NOTE | 2020-02-10 11:10 | NUR ---
RECEIVED report from Nasreen RODRIGUEZ Patient from ER after arrival by car d/t SOB and chest pain for 1 week. Patient states she has been compliant with her prescribed cardiac medications. Patient is calm,AO x 4, follows commands, moves all extremities. On NC 2L, no SOB ambulating from gurney to bed and then to chair. Patient on Amiodioarone IV 0.5mg , bag #2, patient transitioned to PO meds for rate control. Patient reports 0/10 pain, no chest pain, no dizziness. Patient states symptoms for past week, SOB, Dizzness, transient chest pain, neuralgia lower extremities. Will continue to monitor.
[2020-02-10 11:45] VITALS: BP 109/76
--- NOTE | 2020-02-10 11:53 | NUR ---
Dr. Kaufman bedside Updated on status. RN discussed with physician treatment plan if Afib is unstable. Will patient teach throughout the day with the patient. Medication compliance important as patient only had 60 days worth of medication. Additionally a referral to craft coordinator to follow her. Physician orders; Lasix 20 mg IV now. Increase Lisinopril doseage.
--- NOTE | 2020-02-10 12:28 | NUR ---
RN D/C Amiodarone drip per Dr. Kaufman. Per Dr. Kaufman do not hold Lasix 20mg IV at this time, administer with BP 107 systolic at the time he was bedside. RN will encourage oral fluids since patient had not taken any oral fluids since time of admission.
[2020-02-10 12:30] VITALS: BP 102/75
--- NOTE | 2020-02-10 12:31 | NUR ---
Patient back in bed, asleep. Patient ate 15% of lunch meal. NC 2L while sleeping. Patient teaching regarding notifying RN of change in symptoms or chest pain.
[2020-02-10 12:45] VITALS: BP 94/70
--- NOTE | 2020-02-10 12:45 | NUR ---
Patient up to bedside commode.
--- NOTE | 2020-02-10 13:15 | NUR ---
RN bedside to help patient up to commode.
--- NOTE | 2020-02-10 15:00 | NUR ---
RN bedside. Personal belongings completed.
[2020-02-10] MEDS ORDERED: LISI-275 PO (15:21)
[2020-02-10] MEDS ORDERED: FURO20TA3 PO (15:22)
[2020-02-10] MEDS ORDERED: ATOR40TA52 PO (15:24)
[2020-02-10 15:45] VITALS: BP 103/79
--- NOTE | 2020-02-10 15:48 | NUR ---
Patient sleeping in bed.
--- NOTE | 2020-02-10 16:42 | NUR ---
ss consult Per consult no pcp. Olimpia Garcia to see patient for PCP today. Addendum: 02/10/20 at 1643 by Olimpia SARABIA Amended: Links added.
--- NOTE | 2020-02-10 17:29 | NUR ---
RN bedside . Patient sleeping in bed. In no signs of distress.
--- NOTE | 2020-02-10 17:30 | NUR ---
RN paged Dr. Kaufman. Patient off of amiodarone IV drip per his verbal order. He stated he would put patient on Amiodarone PO, but there is no order. Patients HR is trending up. Physicians progress note did state PO Amiodarone, but no doseage.
--- NOTE | 2020-02-10 18:15 | NUR ---
RN bedside, Dr. Kaufman has not returned page. RN will administer Metoprolol for increased rate. ER had held the doseage this a.m.
[2020-02-10] MEDS: MORPHINE SULF INJ 2 MG/ML SYRINGE 1ML IV PRN (18:25)
--- NOTE | 2020-02-10 18:26 | NUR ---
RN administered Morphine 2 mg IV. When RN awoke patient to give Metoprolol PO, patient stated she had chest pain , sternal and radiating to both shoulders at 7/10. When RN asked her if the pain was the same as what brought her in the ER, she stated no it was not as severe. RN place patient on NC 5L oxygen. Will assess and monitor patients vitals, HR 100 BP 107/84 RR 15 SPO2 99%
--- NOTE | 2020-02-10 18:34 | NUR ---
RN paged Dr. Rosen again. Patient is in bed. Reported sternal chest 10/31, feels SOB. RN placed on NC 5L oxygen, HR 113, in Afib. Alert and oriented. Will order stat EKG.
--- NOTE | 2020-02-10 19:01 | NUR ---
RN bedside. RN completed STAT EKG, no significant change from EKG completed in ER. Still waiting for Dr. Kaufman phone call back x 2 pages. Patient pain 5/10, sternal and radiating to both shoulders. Patient had chest tightness and it feels difficult to swallow. Will continue to monitor.
--- NOTE | 2020-02-10 19:06 | NUR ---
RN bedside. Patient current chest pain remains 5/10 after Morphine. HR 107 after Metoprolol PO given. Still awaiting response from Dr. Kaufman 2x paged. Initial was for Amiodarone order, but when RN awoke patient she complained immediately of sternal chest pain 7/10 radiating bilateral shoulders and down left arm. RN administered Morphine 2 mg IV. Stat EKG completed bedside by RN .
--- NOTE | 2020-02-10 19:11 | NUR ---
Dr. Bo returned call, discussed patient symptoms of chest pain and HR. New order Amiodarone 200 mg PO BID , start first dose now. Digoxin 0.25 mg IV 1x dose. now. Lifevest consult.
[2020-02-10] MEDS ORDERED: DIGOXIN (250MCG/ML) 2 ML AMPULE IV ONE (19:15)
--- NOTE | 2020-02-10 19:25 | NUR ---
RECEIVED REPORT FROM NURSE NATARAJAN TO RESUME CARE OF PATIENT
--- NOTE | 2020-02-10 19:38 | NUR ---
RN bedside patient HR 105-114, Chest pain still 5/10. Administered ordered Digoxin 250 mcg. Report given to Prema RODRIGUEZ
--- NOTE | 2020-02-10 19:45 | NUR ---
Opening Shift Note Assumed care of patient, awake and alert. No S/S of distress/SOB or patient c/o 5/10 chest pain but tolerable. Instructed on POC and to call for assist PRN, will continue to monitor for changes Q1hr and PRN.
[2020-02-10 20:00] VITALS: BP 105/70
[2020-02-10] MEDS: AMIODARONE HCL 200 MG TAB PO SCH (20:07)
[2020-02-10] MEDS: ATORVASTATIN 20 MG TAB PO SCH (20:07)
--- NOTE | 2020-02-10 20:21 | NUR ---
ZO[facility] LIFE VEST PATIENT HAS ORDERS FOR LIFE VEST PER DR MARCIAL. ORDERS PLACED FOR LIFE VEST AND DIESEL PILE HAMMER OPERATOR.
[2020-02-11] VITALS: BP 99/62
--- NOTE | 2020-02-11 00:13 | NUR ---
PATIENT HAS NO COMPLAINTS OF PAIN OR ANY DISCOMFORT. PATIENT REMAINS AFIB 80-90S. WILL CONTINUE TO MONITOR PATIENT.
--- NOTE | 2020-02-11 01:28 | NUR ---
TACHYCARDIC WITH EXERTION PATIENT ATTEMPTED TO GET OUT OF BED TO USE BSC PATIENT WITH STANDY ASSIST.
--- NOTE | 2020-02-11 01:36 | NUR ---
HEMATURIA PATIENT HAS +BACT AND LEUK IN UA ON ADMISSION, URINE CULTURE STILL PENDING RESULTS. PATIENT ON ROCEPHIN IV.
[2020-02-11 03:48] LABS: Basophils # (auto) 0.1 10 ^3/uL (0-0.2); Basophils % (auto) 0.6 % (0.0-2.0); Eosinophils # (auto) 0.1 10 ^3/uL (0-0.8); Eosinophils % (auto) 0.8 % (0.0-7.0); Hematocrit 41.8 % (36.0-46.0); Hemoglobin 13.9 g/dL (12.2-16.2); Lymphocytes # (auto) 2.6 10 ^3/uL (0.4-5.4); Lymphocytes % (auto) 27.6 % (10.0-50.0); Mean Corpuscular Hemoglobin 27.8 pg (28.0-32.0); Mean Corpuscular Hgb Conc. 33.1 g/dL (32.0-36.0); Monocytes # (auto) 0.9 10 ^3/uL (0-1.3); Monocytes % (auto) 9.8 % (0.0-12.0); Neutrophils # (auto) 5.8 10 ^3/uL (1.6-8.6); Neutrophils % (auto) 61.2 % (37.0-80.0); Nucleated Red Blood Cells % 0.6 %; Platelet Count (auto) 315 10^3/uL (140-450); Red Blood Cells 4.98 10^6/uL (4.0-5.20); Red Cell Distribution Width 13.8 % (11.8-14.3); White Blood Cell 9.5 10^3/uL (4.4-10.8)
[2020-02-11 04:00] VITALS: BP 114/71
[2020-02-11 04:05] LABS: Potassium 3.7 mmol/L (3.5-5.1)
[2020-02-11 04:25] LABS: Albumin 2.7 g/dL (3.4-5.0); BUN/Creatinine Ratio 18.5; Bilirubin, Total 2.4 mg/dL (0.2-1.0); Calcium 7.8 mg/dL (8.5-10.1); Magnesium 2.3 mg/dL (1.6-2.6); Total Protein 6.1 g/dL (6.4-8.2)
[2020-02-11] MEDS: METOPROLOL TARTRATE 25 MG TAB PO SCH ×2 (05:13→20:13)
--- NOTE | 2020-02-11 07:05 | NUR ---
Assumed care of pt., report received per MICHAEL Lloyd. No distress noted, pt. reading controlled atrial fibrillation on monitor, VSS, will cont.to monitor for any changes, call hoff in reach, assessment ongoing.
[2020-02-11 07:39] VITALS: BP 126/87
[2020-02-11] MEDS: AMIODARONE HCL 200 MG TAB PO SCH ×2 (08:25→20:12)
[2020-02-11] MEDS: cefTRIAXone 1GM/50ML D5W 50 ML IV SCH (08:25)
--- NOTE | 2020-02-11 09:10 | NUR ---
Faxed clinical packet to [facility] requesting a Life Vest for the patient.
[2020-02-11] MEDS ORDERED: ASPirin 81 mg TAB PO SCH (10:00)
[2020-02-11] MEDS: APIXABAN 5 MG TAB PO SCH ×2 (10:04→20:13)
[2020-02-11] MEDS: POTASSIUM CHL 10 Meq TABLET PO SCH (10:05)
[2020-02-11] MEDS: FAMOTIDINE 20 MG TAB PO SCH ×2 (10:05→20:13)
[2020-02-11 11:45] VITALS: BP 105/73
--- NOTE | 2020-02-11 12:00 | NUR ---
No distress noted, pt. resting in bed, no complaints noted, will cont.to monitor for any changes, call hoff in reach, assessment ongoing.
[2020-02-11 16:00] VITALS: BP 108/85
--- NOTE | 2020-02-11 19:10 | NUR ---
No distress noted, pt. report given to MICHAEL Lloyd. Care of pt. assumed per NOC RN, day shift RN relinquished care and signed off.
--- NOTE | 2020-02-11 19:10 | NUR ---
RECEIVED REPORT FROM NURSE MOFFETT TO RESUME CARE OF PATIENT.
[2020-02-11 20:00] VITALS: BP 131/80
[2020-02-11] MEDS: ATORVASTATIN 20 MG TAB PO SCH (20:13)
[2020-02-11] MEDS: MORPHINE SULF INJ 2 MG/ML SYRINGE 1ML IV PRN (20:14)
[2020-02-11] MEDS: SACUBITRIL-VALSARTAN 24mg/26mg TAB PO SCH (22:28)
[2020-02-12 03:37] LABS: Albumin 2.3 g/dL (3.4-5.0); Calcium 7.6 mg/dL (8.5-10.1); Potassium 3.9 mmol/L (3.5-5.1)
[2020-02-12 03:45] LABS: BUN/Creatinine Ratio 18.6; Bilirubin, Total 4.4 mg/dL (0.2-1.0); Total Protein 5.4 g/dL (6.4-8.2)
--- NOTE | 2020-02-12 06:58 | NUR ---
PATIENT HAS NO COMPLAINTS OF PAIN OR ANY DISCOMFORT PATIENT REMAINS AFIB BUT CONTROLLED 80-90 AFTER ENTRESTO WAS ADDED TO PATIENT MEDICATIONS
[2020-02-12] MEDS: FAMOTIDINE 20 MG TAB PO SCH ×2 (09:18→21:51)
[2020-02-12] MEDS: APIXABAN 5 MG TAB PO SCH ×2 (09:18→21:51)
[2020-02-12] MEDS: SACUBITRIL-VALSARTAN 24mg/26mg TAB PO SCH ×2 (09:18→21:51)
[2020-02-12] MEDS: POTASSIUM CHL 10 Meq TABLET PO SCH (09:18)
[2020-02-12] MEDS: FUROSEMIDE 40 MG/4 ML VIAL IV SCH (09:18)
[2020-02-12] MEDS: METOPROLOL TARTRATE 25 MG TAB PO SCH ×2 (09:18→21:52)
[2020-02-12] MEDS: AMIODARONE HCL 200 MG TAB PO SCH ×2 (09:19→20:20)
--- NOTE | 2020-02-12 13:18 | NUR ---
JONATHAN VERDE SPOKE WITH MARIA ELENA FROM [facility] VEST [phone]. STATED WILL FAX OVER MEDICAL ORDER FORM.
--- NOTE | 2020-02-12 14:34 | NUR ---
CARE ENDORSED PT TRANSFERRED TO ROOM 212A BY WHEELCHAIR. RN AWARE AND WITH PT. NO DISTRESS NOTED. ALL BELONGINGS WITH PATIENT.
--- NOTE | 2020-02-12 19:40 | NUR ---
Opening Shift Note Assumed care of patient, awake and alertx4. No S/S of distress/SOB or pain. Instructed on POC and to call for assist PRN. All questions and concerns answered. Call light is within reach, will continue to monitor for changes Q1hr and PRN.
[2020-02-12 22:00] VITALS: BP 112/69
[2020-02-13 05:00] VITALS: BP 102/48
[2020-02-13 06:22] LABS: Potassium 3.6 mmol/L (3.5-5.1)
[2020-02-13 06:36] LABS: Albumin 2.3 g/dL (3.4-5.0); Bilirubin, Total 3.2 mg/dL (0.2-1.0); Calcium 7.9 mg/dL (8.5-10.1); Total Protein 5.6 g/dL (6.4-8.2)
--- NOTE | 2020-02-13 07:30 | NUR ---
Opening Shift Note Assumed care of patient, awake and alert. Patient notified she is NPO for awaiting procedure. Patient verbalized understanding. No S/S of distress/SOB or pain. Instructed on POC and to call for assist PRN, will continue to monitor for changes Q1hr and PRN. Bed is locked and in lowest position. Call light within reach.
[2020-02-13] MEDS: AMIODARONE HCL 200 MG TAB PO SCH ×2 (08:39→20:04)
[2020-02-13 09:00] VITALS: BP 99/58
--- NOTE | 2020-02-13 10:55 | NUR ---
PHONE CALL MADE TO RADIOLOGY REGARDING PENDING CT ANGIO. COOPER ENRIQUEZ STATED PROCEDURE REQUIRES RN AND THEY ARE TRYING TO FIND AN AVAILABLE RN FOR PROCEDURE. WILL AWAIT PHONE CALL REGARDING CT ANGIO IF PATIENT WILL BE GOING TODAY. PATIENT WILL BE KEPT NPO.
--- NOTE | 2020-02-13 11:22 | NUR ---
DR. AGGIE MARCIAL PAGED REGARDING CT ANGIO ORDER AND THE CT MACHINE BEING UNAVAILABLE. DR. MARCIAL STATED HE IS OKAY WITH PATIENT DOING CT ANGIO OUTPATIENT. WILL PAGE DR. SONI TO UPDATE. WILL AWAIT NEW ORDERS.
--- NOTE | 2020-02-13 11:45 | NUR ---
Nutrition Assessment Notes Please refer to link for full assessment notes. Est Energy needs: 2090-7363 kcals (12-15 kcal/kgBW) Est Protein needs: 109-136 gms/day (2.0-2.5 gm/kgIBW of 54.5 kg) Will continue to monitor and reassess prn. Addendum: 02/13/20 at [address] Amended: Links added.
[2020-02-13] MEDS: FUROSEMIDE 40 MG/4 ML VIAL IV SCH (12:34)
[2020-02-13] MEDS: SACUBITRIL-VALSARTAN 24mg/26mg TAB PO SCH ×2 (12:35→21:10)
[2020-02-13] MEDS: FAMOTIDINE 20 MG TAB PO SCH ×2 (12:35→21:10)
[2020-02-13] MEDS: METOPROLOL TARTRATE 25 MG TAB PO SCH ×2 (12:36→21:10)
[2020-02-13] MEDS: APIXABAN 5 MG TAB PO SCH ×2 (12:36→21:10)
[2020-02-13 13:00] VITALS: BP 121/66
[2020-02-13 13:10] LABS: Hepatitis B Surface Antibody Positive
[2020-02-13 13:13] LABS: Hepatitis B Surface Antigen Negative (Negative)
[2020-02-13] MEDS: POTASSIUM CHL 10 Meq TABLET PO SCH (13:15)
[2020-02-13 13:54] LABS: Hepatitis A Total Antibody Positive
[2020-02-13 13:56] LABS: Hepatitis C Antibody Negative (Negative)
[2020-02-13 13:58] LABS: Hepatitis B Core Total AB Negative
--- NOTE | 2020-02-13 14:04 | NUR ---
PATIENT WAS DISCHARGED WITH ZOLL VEST IN OCTOBER VISIT. PATIENT STATES SHE HAS ZOLL VEST AT HOME WITH BATTERY. PATIENT DID NOT BRING VEST WITH HER. PATIENT WILL TRY AND CONTACT FAMILY TO BRING VEST TO BEDSIDE.
[2020-02-13 17:00] VITALS: BP 95/64
[2020-02-13 22:00] VITALS: BP 100/69
[2020-02-14 05:00] VITALS: BP 99/50
--- NOTE | 2020-02-14 07:30 | NUR ---
Opening Shift Note Assumed care of patient, who is alert and oriented x4. Respirations are even and unlabored. No S/S of distress/SOB or pain. Bed is low, locked with 2x side rails up. Call light is within reach. Instructed on POC and to call for assist PRN, will continue to monitor for changes Q1hr and PRN.
[2020-02-14 08:54] VITALS: BP 121/60
--- NOTE | 2020-02-14 09:25 | NUR ---
Spoke to radiology Spoke to Silke from radiology dept. No RN available for CCTA. Paging Dr. Garrison at this time to notify.
[2020-02-14] MEDS ORDERED: FUROSEMIDE 40 MG TAB PO SCH (10:00)
[2020-02-14 10:03] LABS: Potassium 4.1 mmol/L (3.5-5.1)
[2020-02-14] MEDS: SACUBITRIL-VALSARTAN 24mg/26mg TAB PO SCH (10:15)
[2020-02-14] MEDS: AMIODARONE HCL 200 MG TAB PO SCH (10:15)
[2020-02-14] MEDS: APIXABAN 5 MG TAB PO SCH (10:16)
[2020-02-14] MEDS: FAMOTIDINE 20 MG TAB PO SCH (10:16)
[2020-02-14] MEDS: METOPROLOL TARTRATE 25 MG TAB PO SCH (10:16)
--- NOTE | 2020-02-14 10:17 | NUR ---
Dr. Garrison at bedside Discussing POC with patient. MD educating patient on importance of keeping [facility] life vest on. MD asking if patient has a engineering librarian. Per patient, she will go through [facility] to find a engineering librarian. Patient to be discharged today.
[2020-02-14 10:22] LABS: BUN/Creatinine Ratio 14.7; Calcium 8.2 mg/dL (8.5-10.1)
[2020-02-14 10:23] LABS: Albumin 2.4 g/dL (3.4-5.0); Bilirubin, Total 2.2 mg/dL (0.2-1.0); Magnesium 2.2 mg/dL (1.6-2.6); Total Protein 5.8 g/dL (6.4-8.2)
[2020-02-14] MEDS: POTASSIUM CHL 10 Meq TABLET PO SCH (10:45)
[2020-02-14] MEDS ORDERED: MET25T PO (12:54)
[2020-02-14] MEDS ORDERED: APIX5TAB PO (12:54)
[2020-02-14] MEDS ORDERED: PANT40TA2 PO (12:54)
[2020-02-14] MEDS ORDERED: AMIO200T4 PO (12:54)
[2020-02-14] MEDS ORDERED: FURO1TAB31 PO (12:54)
[2020-02-14] MEDS ORDERED: SACU1TAB PO (12:54)
[2020-02-14 13:00] VITALS: BP 104/44
[2020-02-14] MEDS ORDERED: POTA1TAB61 PO (13:06)
[2020-02-14 14:05] VITALS: BP 104/44
--- NOTE | 2020-02-14 15:10 | NUR ---
[facility]'s [facility]. Per Pharmacy, they are still working on getting medications together. Will discharge patient when medications are delivered to bedside.
--- NOTE | 2020-02-14 16:45 | NUR ---
Medications This nurse picked up prescribed medications from [facility] pharmacy and delivered medications to patient's room.
--- NOTE | 2020-02-14 16:59 | NUR ---
Discharge instructions given as ordered. Encourage to follow up with PMD as instructed. This nurse could not schedule a follow up appointment with Dr. Kaufman (cardiology) because his office does not accept her insurance. Strongly encouraged patient to follow up with her PCP to obtain referral for a forester aide. All questions and concerns addressed. Patient verbalized understanding.IV removed with catheter intact, pressure dressing applied. Encouraged patient to continue home medications and to keep Zoll life vest on. Patient educated on importance of taking medications and not skipping doses. Patient verbalized understanding. Patient ambulated to [facility] with all personal belongings, accompanied by staff and family member. No distress noted at time of departure. Telemetry unit returned to ICU.
== END 2020-02-14 16:55 | disposition home or self-care (01) | DRG 201 ==
LOC: ER 20:50 → TELE 20:51 → DOU IN ICU 02-10 10:58 → TELE-CENTR 02-12 15:22
PROVIDERS: ADMIT Nurse Practitioner; ATTEND Internal Medicine
DX: I48.91 Unspecified atrial fibrillation (principal); I21.A1 Myocardial infarction type 2; N17.0 Acute kidney failure with tubular necrosis; I50.23 Acute on chronic systolic (congestive) heart failure; I42.0 Dilated cardiomyopathy; E66.9 Obesity, unspecified; F12.90 Cannabis use, unspecified, uncomplicated; K76.1 Chronic passive congestion of liver; F17.200 Nicotine dependence, unspecified, uncomplicated; I08.3 Combined rheumatic disorders of mitral, aortic and tricuspid valves; I50.82 Biventricular heart failure; K76.0 Fatty (change of) liver, not elsewhere classified; R74.01 Elevation of levels of liver transaminase levels; Z32.02 Encounter for pregnancy test, result negative; Z91.018 Allergy to other foods; Z68.41 Body mass index [BMI] 40.0-44.9, adult; Z82.3 Family history of stroke; Z83.3 Family history of diabetes mellitus; Z82.49 Family history of ischemic heart disease and other diseases of the circulatory system
CPT/HCPCS: 36415; 71045; 76705; 80053; 80061; 80307; 80320; 81001; 81025; 83735; 83880; 84443; 84484; 84702; 85025; 85610; 85730; 86703; 86704; 86706; 86708; 86803; 87081; 87086; 87340; 93005; G0378; J0696; J2405; J7060

== ENCOUNTER 2020-03-11 17:21 | Inpatient (IN) | payer MEDICAID ==
[~2020-03-11] VITALS: Ht 165.1 cm; Wt 110.8 kg
[~2020-03-11 17:21] MED LIST changes: +AMIO200T4 PO; -ASPI81CH43 PO; +ATOR40TA52 PO; +FURO1TAB31 PO; +PANT40TA2 PO; +POTA1TAB61 PO; +SACU1TAB PO
[2020-03-11 20:36] LABS: Basophils # (auto) 0 10 ^3/uL (0-0.2); Basophils % (auto) 0.6 % (0.0-2.0); Eosinophils # (auto) 0 10 ^3/uL (0-0.8); Hematocrit 43.3 % (36.0-46.0); Hemoglobin 14.6 g/dL (12.2-16.2); Lymphocytes # (auto) 1.1 10 ^3/uL (0.4-5.4); Lymphocytes % (auto) 22.8 % (10.0-50.0); Mean Corpuscular Hgb Conc. 33.7 g/dL (32.0-36.0); Mean Corpuscular Volume 83.2 fL (80.0-100.0); Monocytes # (auto) 0.3 10 ^3/uL (0-1.3); Monocytes % (auto) 6.1 % (0.0-12.0); Neutrophils # (auto) 3.3 10 ^3/uL (1.6-8.6); Neutrophils % (auto) 70.5 % (37.0-80.0); Nucleated Red Blood Cells % 0.3 %; Platelet Count (auto) 199 10^3/uL (140-450); Red Blood Cells 5.21 10^6/uL (4.0-5.20); Red Cell Distribution Width 14.9 % (11.8-14.3); White Blood Cell 4.7 10^3/uL (4.4-10.8)
[2020-03-11 20:53] LABS: Albumin 2.4 g/dL (3.4-5.0); Calcium 7.8 mg/dL (8.5-10.1); Potassium 3.7 mmol/L (3.5-5.1)
[2020-03-11 20:55] LABS: BUN/Creatinine Ratio 9.2
[2020-03-11 20:57] LABS: INR 1.51 (0.9-1.15); Partial Thromboplastin Time 33.2 sec (23.0-31.2)
[2020-03-11 21:00] LABS: Bilirubin, Total 1.3 mg/dL (0.2-1.0); Total Protein 6.1 g/dL (6.4-8.2)
[2020-03-11 21:55] LABS: Lactic Acid w/Reflex 2.8 mmol/L (0.4-2.0)
[2020-03-11] MEDS ORDERED: PIPERACILLIN-TAZOB 3.375GM 100 ML IV ONE (23:45)
[2020-03-11] MEDS ORDERED: SODIUM CHLORIDE 0.9% 500 ML IV ONE (23:45)
[2020-03-12] MEDS ORDERED: ALBUMIN 25% 50 ML IV ONE (00:45)
[2020-03-12] MEDS ORDERED: MORPHINE SULF INJ 2 MG/ML SYRINGE 1ML IV PRN (00:45)
[2020-03-12] MEDS ORDERED: AMIODARONE HCL 200 MG TAB PO ONE (00:45)
[2020-03-12] MEDS ORDERED: TEMAZEPAM 15 MG CAP PO PRN (00:45)
[2020-03-12] MEDS ORDERED: ENOXAPARIN SOD 100 MG/1 ML SYRINGE SC ONE (00:45)
[2020-03-12] MEDS ORDERED: ACETAMINOPHEN 325 MG TAB PO PRN (00:45)
[2020-03-12] MEDS ORDERED: NITROGLYCERIN 0.4 MG SL TAB SL PRN (00:45)
[2020-03-12] MEDS ORDERED: ONDANSETRON HCL 4 MG/2 ML VIAL IV PRN (00:45)
[2020-03-12 01:04] VITALS: BP 110/89
[2020-03-12] MEDS ORDERED: AMIODARONE HCL 150 MG in D5W 5% 100 ML IV ONE (01:15)
[2020-03-12] MEDS ORDERED: AMIODARONE 450mg/250ml AE 250 ML IV SCH (01:15)
[2020-03-12] MEDS ORDERED: AMIODARONE HCL (50 MG/ ML) 3 ML VIAL IV ONE (01:24)
[2020-03-12] MEDS ORDERED: AMIODARONE 450mg/250ml AE 250 ML IV ONE (01:25)
[2020-03-12] MEDS ORDERED: ENOXAPARIN SOD 40 MG/0.4 ML SYRINGE SC ONE (03:30)
[2020-03-12] MEDS: FUROSEMIDE 20 MG/2 ML VIAL IV SCH ×2 (06:06→17:46)
[2020-03-12] MEDS: AMIODARONE 450mg/250ml AE 250 ML IV SCH ×2 (07:17→11:45)
[2020-03-12] MEDS: ALBUTEROL SULF HFA 90MCG INH 200DOSE IN SCH ×3 (07:32→22:35)
[2020-03-12] MEDS: DOXYCYCLINE 100MG/250ML 250 ML IV SCH ×2 (09:00→23:10)
[2020-03-12] MEDS: CHOLECALCIFEROL (VITD3) 2,000 UNIT CAP PO SCH (09:01)
[2020-03-12] MEDS: ZINC SULFATE 220mg CAP or TAB PO SCH (09:01)
[2020-03-12] MEDS: FAMOTIDINE 20 MG TAB PO SCH ×2 (09:01→23:09)
[2020-03-12] MEDS: APIXABAN 5 MG TAB PO SCH ×2 (09:02→23:16)
[2020-03-12] MEDS: METOPROLOL TARTRATE 25 MG TAB PO SCH ×2 (09:02→23:09)
[2020-03-12] MEDS: ASCORBIC ACID 1,000 MG TAB PO SCH (09:03)
[2020-03-12] MEDS: DexAMETHasone SOD PHOS 10MG/1ML VIAL INJ IV SCH (09:03)
[2020-03-12 09:49] LABS: CRP High Sensitivity 6.27 mg/dL (< 0.3)
[2020-03-12] MEDS ORDERED: AMIODARONE HCL 200 MG TAB PO SCH (10:00)
[2020-03-12] MEDS ORDERED: ASPirin 81 mg TAB PO SCH (10:00)
[2020-03-12] MEDS ORDERED: ENOXAPARIN SOD 40 MG/0.4 ML SYRINGE SC SCH (10:00)
[2020-03-12] MEDS: BUDESONIDE (INHALATION) 180 MCG IH IN SCH ×2 (11:53→22:35)
[2020-03-12] MEDS ORDERED: DEXTROSE (50%) 50ML SYRG IV PRN (13:00)
[2020-03-12 13:19] LABS: Albumin 2.6 g/dL (3.4-5.0); Calcium 7.7 mg/dL (8.5-10.1); Potassium 3.3 mmol/L (3.5-5.1)
[2020-03-12 13:23] LABS: BUN/Creatinine Ratio 10.6; Bilirubin, Total 1.7 mg/dL (0.2-1.0); Total Protein 6.1 g/dL (6.4-8.2)
[2020-03-12] MEDS: InsuLIN REG 1unit/0.01ml Soln (100units/ml) SC SCH ×2 (17:45→22:00)
[2020-03-12] MEDS: ACCU-CHEK COMFORT CURVE STRIP VI SCH ×2 (17:45→23:10)
[2020-03-12] MEDS: ATORVASTATIN 20 MG TAB PO SCH (23:09)
[2020-03-12] MEDS: SACUBITRIL-VALSARTAN 24mg/26mg TAB PO SCH (23:10)
[2020-03-12] MEDS ORDERED: CALCIUM CARB 500 MG CHEW TAB PO PRN (23:15)
[2020-03-13] MEDS: AMIODARONE 450mg/250ml AE 250 ML IV SCH (02:10)
[2020-03-13] MEDS: FUROSEMIDE 20 MG/2 ML VIAL IV SCH ×2 (06:00→17:59)
[2020-03-13] MEDS: BUDESONIDE (INHALATION) 180 MCG IH IN SCH ×2 (06:57→22:37)
[2020-03-13] MEDS: ALBUTEROL SULF HFA 90MCG INH 200DOSE IN SCH ×3 (06:57→22:37)
[2020-03-13] MEDS: InsuLIN REG 1unit/0.01ml Soln (100units/ml) SC SCH ×4 (06:59→22:00)
[2020-03-13] MEDS: ACCU-CHEK COMFORT CURVE STRIP VI SCH ×4 (07:00→23:47)
[2020-03-13] MEDS ORDERED: ASPirin 81 mg TAB PO SCH (10:00)
[2020-03-13] MEDS: METOPROLOL TARTRATE 25 MG TAB PO SCH (10:00)
[2020-03-13] MEDS: DOXYCYCLINE 100MG/250ML 250 ML IV SCH ×2 (10:11→23:46)
[2020-03-13] MEDS: CHOLECALCIFEROL (VITD3) 2,000 UNIT CAP PO SCH (10:12)
[2020-03-13] MEDS: APIXABAN 5 MG TAB PO SCH ×2 (10:12→23:39)
[2020-03-13] MEDS: SACUBITRIL-VALSARTAN 24mg/26mg TAB PO SCH ×2 (10:12→22:00)
[2020-03-13] MEDS: ZINC SULFATE 220mg CAP or TAB PO SCH (10:14)
[2020-03-13] MEDS: ASCORBIC ACID 1,000 MG TAB PO SCH (10:14)
[2020-03-13] MEDS: FAMOTIDINE 20 MG TAB PO SCH ×2 (10:14→23:42)
[2020-03-13] MEDS: DexAMETHasone SOD PHOS 10MG/1ML VIAL INJ IV SCH (10:15)
[2020-03-13] MEDS ORDERED: DIGOXIN (250MCG/ML) 2 ML AMPULE IV ONE (10:45)
[2020-03-13] MEDS ORDERED: POTASSIUM CHL 20 Meq TABLET PO ONE (10:45)
[2020-03-13] MEDS ORDERED: IOHEXOL 350 MG/ML 100ML IJ ONE (10:53)
[2020-03-13] MEDS ORDERED: APIXABAN 5 MG TAB PO ONE ×2 (12:45→13:00)
[2020-03-13] MEDS ORDERED: CARVEDILOL 3.125 MG TAB PO ONE (13:00)
[2020-03-13] MEDS ORDERED: DIGOXIN 0.25 MG TAB PO ONE (13:00)
[2020-03-13] MEDS ORDERED: METOPROLOL SUCCINATE XL 50 MG TAB PO ONE (13:00)
[2020-03-13] MEDS: METOPROLOL TARTRATE 25 MG TAB PO ONE ×2 (13:23→13:58)
[2020-03-13 13:51] LABS: Basophils # (auto) 0 10 ^3/uL (0-0.2); Eosinophils # (auto) 0 10 ^3/uL (0-0.8); Lymphocytes # (auto) 0.7 10 ^3/uL (0.4-5.4); Mean Corpuscular Volume 82.9 fL (80.0-100.0); Monocytes # (auto) 0.3 10 ^3/uL (0-1.3); Neutrophils # (auto) 6.4 10 ^3/uL (1.6-8.6); White Blood Cell 7.5 10^3/uL (4.4-10.8)
[2020-03-13 13:52] LABS: Basophils % (auto) 0.4 % (0.0-2.0); Hemoglobin 14.6 g/dL (12.2-16.2); Lymphocytes % (auto) 9.3 % (10.0-50.0); Mean Corpuscular Hgb Conc. 32.5 g/dL (32.0-36.0); Monocytes % (auto) 4.5 % (0.0-12.0); Neutrophils % (auto) 85.8 % (37.0-80.0); Platelet Count (auto) 162 10^3/uL (140-450); Red Blood Cells 5.43 10^6/uL (4.0-5.20); Red Cell Distribution Width 14.6 % (11.8-14.3)
[2020-03-13] MEDS ORDERED: AMIODARONE HCL 200 MG TAB PO ONE (14:00)
[2020-03-13 14:07] LABS: Albumin 1.9 g/dL (3.4-5.0); Calcium 7.6 mg/dL (8.5-10.1); Magnesium 2.1 mg/dL (1.6-2.6)
[2020-03-13 14:13] LABS: BUN/Creatinine Ratio 12.4; Bilirubin, Total 1.5 mg/dL (0.2-1.0); Total Protein 5.1 g/dL (6.4-8.2)
[2020-03-13 17:00] VITALS: BP 90/50
[2020-03-13 21:00] VITALS: BP 112/50
[2020-03-13] MEDS ORDERED: METOPROLOL TARTRATE 25 MG TAB PO SCH (22:00)
[2020-03-13] MEDS: CARVEDILOL 3.125 MG TAB PO SCH (22:00)
[2020-03-13] MEDS ORDERED: APIXABAN 5 MG TAB PO SCH ×3 (22:00)
[2020-03-13] MEDS ORDERED: METOPROLOL SUCCINATE XL 50 MG TAB PO SCH ×2 (22:00)
[2020-03-13] MEDS: ATORVASTATIN 20 MG TAB PO SCH (23:46)
[2020-03-14 01:00] VITALS: BP 90/64
[2020-03-14] MEDS: FUROSEMIDE 20 MG/2 ML VIAL IV SCH ×2 (06:41→17:11)
[2020-03-14] MEDS: ACCU-CHEK COMFORT CURVE STRIP VI SCH ×4 (06:41→22:24)
[2020-03-14] MEDS: InsuLIN REG 1unit/0.01ml Soln (100units/ml) SC SCH ×4 (06:41→22:25)
[2020-03-14 07:30] LABS: Basophils # (auto) 0 10 ^3/uL (0-0.2); Basophils % (auto) 0.3 % (0.0-2.0); Eosinophils # (auto) 0 10 ^3/uL (0-0.8); Hematocrit 48.3 % (36.0-46.0); Hemoglobin 15.9 g/dL (12.2-16.2); Lymphocytes # (auto) 0.7 10 ^3/uL (0.4-5.4); Lymphocytes % (auto) 7.5 % (10.0-50.0); Mean Corpuscular Hemoglobin 27.3 pg (28.0-32.0); Mean Corpuscular Volume 82.9 fL (80.0-100.0); Monocytes # (auto) 0.5 10 ^3/uL (0-1.3); Monocytes % (auto) 5.4 % (0.0-12.0); Neutrophils # (auto) 8.4 10 ^3/uL (1.6-8.6); Neutrophils % (auto) 86.8 % (37.0-80.0); Platelet Count (auto) 188 10^3/uL (140-450); Red Blood Cells 5.83 10^6/uL (4.0-5.20); Red Cell Distribution Width 14.9 % (11.8-14.3); White Blood Cell 9.6 10^3/uL (4.4-10.8)
[2020-03-14 07:34] LABS: Albumin 1.7 g/dL (3.4-5.0); Calcium 7.5 mg/dL (8.5-10.1); Potassium 3.8 mmol/L (3.5-5.1)
[2020-03-14 07:39] LABS: BUN/Creatinine Ratio 13.2; Bilirubin, Total 1.4 mg/dL (0.2-1.0); Magnesium 1.9 mg/dL (1.6-2.6); Total Protein 4.9 g/dL (6.4-8.2)
[2020-03-14] MEDS: ALBUTEROL SULF HFA 90MCG INH 200DOSE IN SCH ×3 (07:39→21:17)
[2020-03-14] MEDS: BUDESONIDE (INHALATION) 180 MCG IH IN SCH ×2 (07:40→21:18)
[2020-03-14 09:00] VITALS: BP 107/66
[2020-03-14] MEDS: AMIODARONE HCL 200 MG TAB PO SCH ×2 (10:38→22:11)
[2020-03-14] MEDS: DexAMETHasone SOD PHOS 10MG/1ML VIAL INJ IV SCH (10:38)
[2020-03-14] MEDS: ZINC SULFATE 220mg CAP or TAB PO SCH (10:38)
[2020-03-14] MEDS: DOXYCYCLINE 100MG/250ML 250 ML IV SCH ×2 (10:38→22:11)
[2020-03-14] MEDS: CARVEDILOL 3.125 MG TAB PO SCH ×2 (10:39→22:12)
[2020-03-14] MEDS: APIXABAN 5 MG TAB PO SCH ×2 (10:39→22:11)
[2020-03-14] MEDS: DIGOXIN 0.25 MG TAB PO SCH (10:40)
[2020-03-14] MEDS: ASCORBIC ACID 1,000 MG TAB PO SCH (10:40)
[2020-03-14] MEDS: FAMOTIDINE 20 MG TAB PO SCH ×2 (10:40→22:11)
[2020-03-14] MEDS: SACUBITRIL-VALSARTAN 24mg/26mg TAB PO SCH ×2 (10:40→22:11)
[2020-03-14] MEDS: CHOLECALCIFEROL (VITD3) 2,000 UNIT CAP PO SCH (10:40)
[2020-03-14 12:56] VITALS: BP 103/71
[2020-03-14] MEDS ORDERED: POTASSIUM CHL 20 Meq TABLET PO ONE (13:30)
[2020-03-14] MEDS ORDERED: MAGNESIUM SULFATE 1GM/100ML 100 ML IV ONE (13:30)
[2020-03-14 16:45] VITALS: BP 91/54
[2020-03-14 21:00] VITALS: BP 107/60
[2020-03-14] MEDS: ATORVASTATIN 20 MG TAB PO SCH (22:11)
[2020-03-14 22:44] LABS: Alcohol, Urine < 3.0 mg/dL (0-10); Amphetamine Screen, Urine NEGATIVE (NEGATIVE); Barbiturate Scree,Urine NEGATIVE (NEGATIVE); Benzodiazephine Screen, Urine NEGATIVE (NEGATIVE); Cannabinoid Screen, Urine NEGATIVE (NEGATIVE); Cocaine Screen, Urine NEGATIVE (NEGATIVE); Opiate Scree,Urine NEGATIVE (NEGATIVE); Phencyclidine Screen, Urine NEGATIVE (NEGATIVE)
[2020-03-14 23:31] VITALS: BP 111/58
[2020-03-15 05:00] VITALS: BP 109/60
[2020-03-15] MEDS: FUROSEMIDE 20 MG/2 ML VIAL IV SCH ×2 (06:07→17:22)
[2020-03-15] MEDS: BUDESONIDE (INHALATION) 180 MCG IH IN SCH ×2 (06:19→22:07)
[2020-03-15] MEDS: ALBUTEROL SULF HFA 90MCG INH 200DOSE IN SCH ×3 (06:19→22:08)
[2020-03-15] MEDS: ACCU-CHEK COMFORT CURVE STRIP VI SCH ×4 (06:40→23:01)
[2020-03-15] MEDS: InsuLIN REG 1unit/0.01ml Soln (100units/ml) SC SCH ×4 (06:40→22:00)
[2020-03-15 07:58] LABS: Calcium 7.7 mg/dL (8.5-10.1); Potassium 4.1 mmol/L (3.5-5.1)
[2020-03-15 08:02] LABS: Albumin 1.7 g/dL (3.4-5.0); BUN/Creatinine Ratio 14.8; Magnesium 2.3 mg/dL (1.6-2.6)
[2020-03-15 08:04] LABS: Bilirubin, Total 1.3 mg/dL (0.2-1.0)
[2020-03-15 09:19] VITALS: BP 92/55
[2020-03-15] MEDS: ZINC SULFATE 220mg CAP or TAB PO SCH (10:25)
[2020-03-15] MEDS: DOXYCYCLINE 100MG/250ML 250 ML IV SCH ×2 (10:25→22:50)
[2020-03-15] MEDS: APIXABAN 5 MG TAB PO SCH ×2 (10:26→22:51)
[2020-03-15] MEDS: AMIODARONE HCL 200 MG TAB PO SCH ×2 (10:26→22:50)
[2020-03-15] MEDS: SACUBITRIL-VALSARTAN 24mg/26mg TAB PO SCH ×2 (10:27→22:51)
[2020-03-15] MEDS: DIGOXIN 0.25 MG TAB PO SCH (10:28)
[2020-03-15] MEDS: FAMOTIDINE 20 MG TAB PO SCH ×2 (10:28→22:51)
[2020-03-15] MEDS: CHOLECALCIFEROL (VITD3) 2,000 UNIT CAP PO SCH (10:29)
[2020-03-15] MEDS: ASCORBIC ACID 1,000 MG TAB PO SCH (10:29)
[2020-03-15] MEDS: CARVEDILOL 3.125 MG TAB PO SCH ×2 (10:35→22:55)
[2020-03-15 13:00] VITALS: BP 116/45
[2020-03-15] MEDS: DexAMETHasone SOD PHOS 10MG/1ML VIAL INJ IV SCH (14:25)
[2020-03-15 17:00] VITALS: BP 139/97
[2020-03-15 21:00] VITALS: BP 101/50
[2020-03-15] MEDS: ATORVASTATIN 20 MG TAB PO SCH (22:51)
[2020-03-16 05:00] VITALS: BP 112/59
[2020-03-16] MEDS: FUROSEMIDE 20 MG/2 ML VIAL IV SCH ×2 (06:14→18:26)
[2020-03-16 06:39] LABS: Basophils # (auto) 0 10 ^3/uL (0-0.2); Eosinophils # (auto) 0 10 ^3/uL (0-0.8); Hemoglobin 14.7 g/dL (12.2-16.2); Lymphocytes # (auto) 0.4 10 ^3/uL (0.4-5.4); Mean Corpuscular Volume 83.4 fL (80.0-100.0); Monocytes # (auto) 0.6 10 ^3/uL (0-1.3); Neutrophils # (auto) 6.6 10 ^3/uL (1.6-8.6); White Blood Cell 7.5 10^3/uL (4.4-10.8)
[2020-03-16 06:42] LABS: Hematocrit 45.2 % (36.0-46.0); Lymphocytes % (auto) 4.7 % (10.0-50.0); Mean Corpuscular Hgb Conc. 32.4 g/dL (32.0-36.0); Monocytes % (auto) 8.1 % (0.0-12.0); Neutrophils % (auto) 87.2 % (37.0-80.0); Platelet Count (auto) 226 10^3/uL (140-450); Red Blood Cells 5.42 10^6/uL (4.0-5.20); Red Cell Distribution Width 15.2 % (11.8-14.3)
[2020-03-16] MEDS: InsuLIN REG 1unit/0.01ml Soln (100units/ml) SC SCH ×4 (06:51→22:00)
[2020-03-16] MEDS: ACCU-CHEK COMFORT CURVE STRIP VI SCH ×4 (06:51→22:59)
[2020-03-16 06:59] LABS: Albumin 1.7 g/dL (3.4-5.0); BUN/Creatinine Ratio 15.4; Calcium 7.7 mg/dL (8.5-10.1)
[2020-03-16 07:01] LABS: Bilirubin, Total 1.2 mg/dL (0.2-1.0); Total Protein 4.8 g/dL (6.4-8.2)
[2020-03-16] MEDS: BUDESONIDE (INHALATION) 180 MCG IH IN SCH ×2 (07:20→21:48)
[2020-03-16] MEDS: ALBUTEROL SULF HFA 90MCG INH 200DOSE IN SCH ×3 (07:20→21:48)
[2020-03-16 08:00] VITALS: BP 109/58
[2020-03-16] MEDS: DexAMETHasone SOD PHOS 10MG/1ML VIAL INJ IV SCH (11:19)
[2020-03-16] MEDS: DOXYCYCLINE 100MG/250ML 250 ML IV SCH ×2 (11:19→22:56)
[2020-03-16] MEDS: AMIODARONE HCL 200 MG TAB PO SCH ×2 (11:19→22:57)
[2020-03-16] MEDS: ZINC SULFATE 220mg CAP or TAB PO SCH (11:19)
[2020-03-16] MEDS: CHOLECALCIFEROL (VITD3) 2,000 UNIT CAP PO SCH (11:20)
[2020-03-16] MEDS: CARVEDILOL 3.125 MG TAB PO SCH ×2 (11:20→22:58)
[2020-03-16] MEDS: APIXABAN 5 MG TAB PO SCH ×2 (11:20→22:58)
[2020-03-16] MEDS: FAMOTIDINE 20 MG TAB PO SCH ×2 (11:20→22:59)
[2020-03-16] MEDS: ASCORBIC ACID 1,000 MG TAB PO SCH (11:20)
[2020-03-16 12:00] VITALS: BP 109/58
[2020-03-16 17:00] VITALS: BP 103/58
[2020-03-16 22:23] VITALS: BP 105/66
[2020-03-16] MEDS: ATORVASTATIN 20 MG TAB PO SCH (22:59)
[2020-03-17 04:54] VITALS: BP 106/54
[2020-03-17 05:58] LABS: Urine Bacteria FEW /hpf (None Seen); Urine Blood 3+ /uL (Negative); Urine Specific Gravity 1.011 (1.001-1.035); Urine WBC 12 /hpf (0 - 5)
[2020-03-17 06:17] LABS: Protein, Urine 35.3 mg/dL (0.0-11.9)
[2020-03-17 06:29] LABS: Basophils # (auto) 0 10 ^3/uL (0-0.2); Basophils % (auto) 0.1 % (0.0-2.0); Eosinophils # (auto) 0 10 ^3/uL (0-0.8); Hematocrit 44.4 % (36.0-46.0); Hemoglobin 14.6 g/dL (12.2-16.2); Lymphocytes # (auto) 0.4 10 ^3/uL (0.4-5.4); Lymphocytes % (auto) 4.9 % (10.0-50.0); Mean Corpuscular Hemoglobin 27.1 pg (28.0-32.0); Mean Corpuscular Hgb Conc. 32.8 g/dL (32.0-36.0); Mean Corpuscular Volume 82.7 fL (80.0-100.0); Monocytes # (auto) 0.8 10 ^3/uL (0-1.3); Monocytes % (auto) 10.8 % (0.0-12.0); Neutrophils # (auto) 6.3 10 ^3/uL (1.6-8.6); Neutrophils % (auto) 84.2 % (37.0-80.0); Platelet Count (auto) 266 10^3/uL (140-450); Red Blood Cells 5.37 10^6/uL (4.0-5.20); Red Cell Distribution Width 14.5 % (11.8-14.3); White Blood Cell 7.5 10^3/uL (4.4-10.8)
[2020-03-17] MEDS: FUROSEMIDE 20 MG/2 ML VIAL IV SCH (06:32)
[2020-03-17] MEDS: ACCU-CHEK COMFORT CURVE STRIP VI SCH ×4 (06:32→22:14)
[2020-03-17] MEDS: InsuLIN REG 1unit/0.01ml Soln (100units/ml) SC SCH ×2 (06:33→11:19)
[2020-03-17 07:14] LABS: Potassium 4.2 mmol/L (3.5-5.1)
[2020-03-17 07:23] LABS: Albumin 1.8 g/dL (3.4-5.0); BUN/Creatinine Ratio 15.9; Bilirubin, Total 1.1 mg/dL (0.2-1.0); Calcium 7.9 mg/dL (8.5-10.1); Magnesium 2.7 mg/dL (1.6-2.6); Total Protein 5.1 g/dL (6.4-8.2)
[2020-03-17] MEDS: BUDESONIDE (INHALATION) 180 MCG IH IN SCH ×2 (08:10→20:38)
[2020-03-17] MEDS: ALBUTEROL SULF HFA 90MCG INH 200DOSE IN SCH ×3 (08:10→20:38)
[2020-03-17 08:50] VITALS: BP 104/53
[2020-03-17] MEDS: DexAMETHasone SOD PHOS 10MG/1ML VIAL INJ IV SCH (10:00)
[2020-03-17] MEDS: ZINC SULFATE 220mg CAP or TAB PO SCH (10:00)
[2020-03-17] MEDS: AMIODARONE HCL 200 MG TAB PO SCH ×2 (10:46→22:13)
[2020-03-17] MEDS: CARVEDILOL 3.125 MG TAB PO SCH ×2 (10:47→22:13)
[2020-03-17] MEDS: APIXABAN 5 MG TAB PO SCH ×2 (10:47→22:14)
[2020-03-17] MEDS: FAMOTIDINE 20 MG TAB PO SCH ×2 (10:47→22:13)
[2020-03-17] MEDS: ASCORBIC ACID 1,000 MG TAB PO SCH (10:48)
[2020-03-17] MEDS: CHOLECALCIFEROL (VITD3) 2,000 UNIT CAP PO SCH (10:48)
[2020-03-17 13:00] VITALS: BP 110/49
[2020-03-17 17:00] VITALS: BP 107/58
[2020-03-17 18:47] VITALS: BP 107/58
[2020-03-17 22:00] VITALS: BP_SYST 113
[2020-03-17] MEDS: ATORVASTATIN 20 MG TAB PO SCH (22:14)
[2020-03-18 05:00] VITALS: BP 103/65
[2020-03-18] MEDS: ALBUTEROL SULF HFA 90MCG INH 200DOSE IN SCH ×2 (06:00→15:00)
[2020-03-18] MEDS: ACCU-CHEK COMFORT CURVE STRIP VI SCH ×3 (06:42→17:00)
[2020-03-18 07:25] LABS: Basophils # (auto) 0 10 ^3/uL (0-0.2); Basophils % (auto) 0.1 % (0.0-2.0); Eosinophils # (auto) 0 10 ^3/uL (0-0.8); Eosinophils % (auto) 0.2 % (0.0-7.0); Hematocrit 43.8 % (36.0-46.0); Hemoglobin 14.5 g/dL (12.2-16.2); Lymphocytes # (auto) 0.7 10 ^3/uL (0.4-5.4); Lymphocytes % (auto) 9.3 % (10.0-50.0); Mean Corpuscular Hemoglobin 27.4 pg (28.0-32.0); Mean Corpuscular Hgb Conc. 33.1 g/dL (32.0-36.0); Mean Corpuscular Volume 82.7 fL (80.0-100.0); Monocytes % (auto) 12.6 % (0.0-12.0); Neutrophils # (auto) 6.2 10 ^3/uL (1.6-8.6); Neutrophils % (auto) 77.8 % (37.0-80.0); Nucleated Red Blood Cells % 0.1 %; Platelet Count (auto) 284 10^3/uL (140-450); Red Cell Distribution Width 14.9 % (11.8-14.3)
[2020-03-18 07:37] LABS: BUN/Creatinine Ratio 17.5; Calcium 8.4 mg/dL (8.5-10.1); Potassium 4.5 mmol/L (3.5-5.1)
[2020-03-18] MEDS: BUDESONIDE (INHALATION) 180 MCG IH IN SCH (08:18)
[2020-03-18 09:00] VITALS: BP 101/56
[2020-03-18] MEDS: FUROSEMIDE 20 MG/2 ML VIAL IV SCH ×2 (10:00→10:39)
[2020-03-18] MEDS: AMIODARONE HCL 200 MG TAB PO SCH (10:40)
[2020-03-18] MEDS: ZINC SULFATE 220mg CAP or TAB PO SCH (10:40)
[2020-03-18] MEDS: APIXABAN 5 MG TAB PO SCH (10:41)
[2020-03-18] MEDS: CARVEDILOL 3.125 MG TAB PO SCH (10:41)
[2020-03-18] MEDS: FAMOTIDINE 20 MG TAB PO SCH (10:41)
[2020-03-18] MEDS: ASCORBIC ACID 1,000 MG TAB PO SCH (10:42)
[2020-03-18] MEDS: CHOLECALCIFEROL (VITD3) 2,000 UNIT CAP PO SCH (10:42)
[2020-03-18 13:00] VITALS: BP 126/46
[2020-03-18 17:00] VITALS: BP 113/71
[2020-03-18 18:40] VITALS: BP 113/71
[2020-03-20] MEDS ORDERED: APIXABAN 5 MG TAB PO SCH (22:00)
== END 2020-03-18 21:15 | disposition home or self-care (01) | DRG 137 ==
LOC: ER 17:21 → TELE 17:22 → TELE-EAST 03-13 16:26
PROVIDERS: ADMIT Nurse Practitioner; ATTEND Internal Medicine
DX: U07.1 COVID-19 (principal); J12.89 Other viral pneumonia; N17.0 Acute kidney failure with tubular necrosis; I21.A1 Myocardial infarction type 2; I26.99 Other pulmonary embolism without acute cor pulmonale; I48.20 Chronic atrial fibrillation, unspecified; E66.01 Morbid (severe) obesity due to excess calories; E87.6 Hypokalemia; E88.09 Other disorders of plasma-protein metabolism, not elsewhere classified; I08.3 Combined rheumatic disorders of mitral, aortic and tricuspid valves; I11.0 Hypertensive heart disease with heart failure; D68.69 Other thrombophilia; I50.43 Acute on chronic combined systolic (congestive) and diastolic (congestive) heart failure; I42.0 Dilated cardiomyopathy; J96.01 Acute respiratory failure with hypoxia; K76.1 Chronic passive congestion of liver; Z68.41 Body mass index [BMI] 40.0-44.9, adult; I25.2 Old myocardial infarction; Z79.01 Long term (current) use of anticoagulants; Z79.899 Other long term (current) drug therapy
CPT/HCPCS: 36415; 36600; 71045; 71275; 80048; 80053; 80162; 80307; 81001; 82306; 82570; 82728; 82805; 82962; 83036; 83605; 83615; 83735; 83880; 84156; 84439; 84443; 84484; 85025; 85379; 85610; 85730; 86141; 87040; 87426; 87804; 93005; 93970; 94640; 96365; 96366; 96368; 96375; 96376; 99291; G0378; J1100; J1815; J2543; J3490; J7060

== ENCOUNTER 2020-03-19 14:28 | Emergency (ER) | payer MEDICAID ==
[~2020-03-19] VITALS: Ht 167.6 cm; Wt 136.1 kg
[~2020-03-19 14:28] MED LIST changes: -ATOR40TA52 PO
[2020-03-19] MEDS ORDERED: SODIUM BICARBONATE 8.4% INJ 50ML SYRINGE IV ONE (14:29)
[2020-03-19] MEDS ORDERED: EPINEPHrine HCL 1 MG/10 ML SYRG IV ONE (14:29)
[2020-03-19] MEDS ORDERED: ADENOSINE 6 MG/2 ML INJ IV ONE (14:29)
[2020-03-19] MEDS ORDERED: LIDOCAINE 4MG/ML IV SOLN 500ML BAG IV ONE (14:29)
[2020-03-19] MEDS ORDERED: DEXTROSE (50%) 50ML SYRG IV ONE (14:29)
[2020-03-19] MEDS ORDERED: EPINEPHrine HCL 1 MG/10 ML SYRG ONE (14:41)
[2020-03-19 14:46] VITALS: BP 0/0
== END 2020-03-19 14:45 | disposition expired ==
LOC: EDUNIT# 14:28 → ER 14:28 → EDBD 14:28 → ER 14:45
DX: I46.9 Cardiac arrest, cause unspecified (principal); U07.1 COVID-19; I48.91 Unspecified atrial fibrillation; R41.82 Altered mental status, unspecified; I13.0 Hypertensive heart and chronic kidney disease with heart failure and stage 1 through stage 4 chronic kidney disease, or unspecified chronic kidney disease; N18.9 Chronic kidney disease, unspecified; I50.9 Heart failure, unspecified; I25.2 Old myocardial infarction
CPT/HCPCS: 31500; 92950; 99285; J0153; J0171; J2001; J7042